=== PATIENT | male | born 2000 | race Caucasian/White ===

== ENCOUNTER 2022-06-15 12:36 | Emergency (ER) | payer MEDICAID ==
[~2022-06-15] VITALS: Ht 172.7 cm; Wt 61.0 kg
--- NOTE | 2022-06-15 13:57 | ED Headache ---
General Chief Complaint: Head/Cervical Problems Stated Complaint: REFERRED FROM [facility] POSSIBLE MENINGITIS Nursing Triage Note: pt states he has had a migrane and fever for abut 6 days, neck pain for about 3-4 days, also states L testicle pain, white discharge and buring with urination. Source: patient Exam Limitations: no limitations History of Present Illness Date Seen by Provider: Jun 15, 2022 Time Seen by Provider: 13:45 Initial Comments Patient is a 21 yo M who presents to the ED with headache and cervical neck pain for approximately 6 days. He states he had a fever for the first few days of the headache but denies any fever in the last 48 hours. He was seen at a walk-in clinic and referred here for concern for meningitis. Patient states he does have increased pain with lateral movement of his neck but denies any pain with flexion/extension. No vomiting, vision change, focal weakness/numbness, dizziness. Patient states he took one of his family's muscle relaxers a few days ago but he has had nothing since for the symptoms. Location: frontal Allergies and Home Medications Allergies Coded Allergies: sulfamethoxazole (Verified Allergy, Unknown, 06/15/22) trimethoprim (Verified Allergy, Unknown, 06/15/22) Patient Home Medication List Home Medication List Reviewed: Yes Review of Systems Review of Systems Constitutional: no symptoms reported Eyes: No Symptoms Reported Ears, Nose, Mouth, Throat: no symptoms reported Respiratory: no symptoms reported Cardiovascular: no symptoms reported Gastrointestinal: no symptoms reported Genitourinary: no symptoms reported Musculoskeletal: neck pain Skin: no symptoms reported Psychiatric/Neurological: Headache Past [id number] Hx Patient Social History Smokeless Tobacco Frequency: Current Everyday User Use of E-Cig and/or Vaping dev: Yes E-Cig or Vaping type used: Nicotine Alcohol Use?: No Pt feels they are or have been: No Physical Exam Vital Signs Vital Signs - First Documented 06/15/22 13:34 Temp 35.3 Pulse 60 Resp 18 B/P (MAP) 118/68 (85) Pulse Ox 99 O2 Delivery Room Air Capillary Refill : Height, Weight, BMI Height: '" Weight: lbs. oz. kg; 20.00 BMI Method: General Appearance: WD/WN, no apparent distress HEENT: PERRL/EOMI, normal ENT inspection Neck: non-tender, full range of motion Cardiovascular: regular rate, rhythm Respiratory: chest non-tender, lungs clear, normal breath sounds, no respiratory distress, no accessory muscle use Gastrointestinal: normal bowel sounds, non tender, soft Back: normal inspection Extremities: normal range of motion, non-tender Skin: normal color, warm/dry Progress/Results/Core Measures Results/Orders My Orders Orders - LUIS CARLOS LISA APRN Prochlorperazine Tablet (Compazine Table (06/15/22 14:00) Ibuprofen Tablet (Motrin Tablet) (06/15/22 14:00) Vital Signs/I&O 06/15/22 13:34 Temp 35.3 Pulse 60 Resp 18 B/P (MAP) 118/68 (85) Pulse Ox 99 O2 Delivery Room Air Blood Pressure Mean: 85 Progress Progress Note : Progress Note Patient is nontoxic and well hydrated on exam. Vital signs are stable. No nuchal rigidity noted. Pt was offered IM medications for his headache and he declined stating he would like oral ones. Rates head pain 4/10. I have very low suspicion for meningitis. No indication for cross sectional imaging of the head as there are no focal neurologic deficits. Will d/c home with recs for supportive care and follow-up with PCP for persistent symptoms. Return precautions for urgent symptomology discussed. Patient verbalized understanding. Departure Impression Primary Impression: Headache Qualified Codes: R51.9 - Headache, unspecified Additional Impression: Cervical pain Disposition: HOME, SELF-CARE Condition: Stable Departure-Patient Inst. Decision time for Depature: 13:55 Referrals: [facility] [place] Primary Care Physician Patient Instructions: Headache, Adult (DC), Neck Pain ED Scripts Ibuprofen (Ibuprofen) 600 Mg Tablet 600 MG PO Q6H PRN for PAIN-MILD for 5 Days, #20 TAB 0 Refills Prov: LUIS CARLOS LISA APRN 06/15/22 Prochlorperazine Maleate (Compazine) 10 Mg Tablet 10 MG PO Q8H PRN for HEADACHE for 5 Days, #15 TAB 0 Refills Prov: LUIS CARLOS LISA APRN 06/15/22 LUIS CARLOS LISA APRN Jun 15, 2022 13:57
[2022-06-15] MEDS ORDERED: IBUP-1773 PO (13:59)
[2022-06-15] MEDS ORDERED: PROC-1 PO (13:59)
[2022-06-15] MEDS ORDERED: IBUPROFEN 600 MG (MOTRIN) TAB PO ONE (14:00)
[2022-06-15] MEDS ORDERED: PROCHLORPERAZINE 10 MG TAB (COMPAZINE) PO ONE (14:00)
[2022-06-15 14:13] VITALS: BP 120/74
== END 2022-06-15 14:13 | disposition home or self-care (01) ==
LOC: ER 12:41
DX: M54.2 Cervicalgia (principal); R51.9 Headache, unspecified; F17.290 Nicotine dependence, other tobacco product, uncomplicated; Z28.310 Unvaccinated for COVID-19
CPT/HCPCS: 99281